=== PATIENT | female | born 1965 | race Caucasian/White ===

== ENCOUNTER 2024-09-09 20:36 | Emergency (ER) | payer OTHER ==
[2024-09-09 20:46] VITALS: TEMP 98.1; BMI 33.6
[2024-09-09 21:48] LABS: ABSOLUTE IMMATURE GRANULOCYTES 0.02 x10^3/uL (0.0-0.031); BASOPHILS # 0.07 x10^3/uL (0.01-0.08); EOSINOPHIL % 1.8 % (0.7-5.8); EOSINOPHILS # 0.13 x10^3/uL (0.04-0.36); MCHC 31.6 g/dl (32.2-35.5); MEAN CELL VOLUME 99.5 fl (79.4-94.8); MEAN PLT VOLUME 11.3 fl (9.4-12.3); MONOCYTE # 0.62 x10^3/uL (0.24-0.86); MONOCYTE % 8.7 % (4.7-12.5); RDW 13.9 % (12.3-16.6)
[2024-09-09] MEDS: ACETAMINOPHEN 1000 MG/100 ML BAG IVPB ONE (21:49)
[2024-09-09] MEDS: SODIUM CHLORIDE 0.9% 500 ML INFUS.BAG IV ONE (21:49)
[2024-09-09 21:50] LABS: URINE APPEARANCE CLEAR; URINE BILIRUBIN NEGATIVE (NEGATIVE); URINE COLOR YELLOW; URINE GLUCOSE (UA) NEGATIVE (NEGATIVE); URINE KETONE NEGATIVE (NEGATIVE); URINE LEUK ESTERASE NEGATIVE (NEGATIVE); URINE NITRITE NEGATIVE (NEGATIVE); URINE PROTEIN NEGATIVE (NEGATIVE); URINE UROBILINOGEN 0.2 mg/dL (0.2-1.0)
[2024-09-09] MEDS ORDERED: ACETAMINOPHEN INJECTION 100 ML ONE (21:51)
[2024-09-09 22:07] LABS: GLUCOSE,RANDOM 98.0 mg/dL (74-106)
[2024-09-09 22:08] LABS: CO2 29.0 mmol/L (21-32)
[2024-09-09 22:11] LABS: CREATININE 0.8 mg/dL (0.55-1.3); SGPT/ALT 30.0 U/L (13-61)
[2024-09-09 22:12] LABS: SGOT/AST 42.0 U/L (15-37)
[2024-09-09 22:13] LABS: TOT PROT 7.8 g/dl (6.4-8.2)
[2024-09-09 22:26] LABS: ALK PHOS 103.0 U/L (45-117)
[2024-09-09 23:01] LABS: CO2 28.0 mmol/L (21-32); GLUCOSE,RANDOM 99.0 mg/dL (74-106)
[2024-09-09 23:04] LABS: CREATININE 0.7 mg/dL (0.55-1.3)
[2024-09-09 23:37] LABS: HIV INTERPRETATION NEGATIVE (NEGATIVE)
[2024-09-09 23:38] LABS: HCV DIAGNOSTIC IN-HOUSE W/RFLX NON-REACTIVE (NONREACTIVE)
[2024-09-10] MEDS ORDERED: KETOROLAC TROMETHAMINE 15 MG/ML VIAL ONE (02:19)
[2024-09-10] MEDS: KETOROLAC TROMETHAMINE 15 MG/ML VIAL IVPUSH ONE (02:26)
[2024-09-10 13:14] VITALS: BP 117/75; PULSE 60; RESP 17
== END 2024-09-10 03:31 | disposition home or self-care (01) ==
LOC: JER 20:36
PROC: 3E033NZ Introduction of Analgesics, Hypnotics, Sedatives into Peripheral Vein, Percutaneous Approach (ICD-10-PCS; principal; 2024-09-09)
PROC: 3E0333Z Introduction of Anti-inflammatory into Peripheral Vein, Percutaneous Approach (ICD-10-PCS; 2024-09-10)
DX: R10.31 Right lower quadrant pain (principal)
CPT/HCPCS: 36415; 74177-TC; 76856-TC; 80048; 80053; 81003; 83605; 83690; 83735; 85025; 86803; 87389; 99285-25; Q9967